=== PATIENT | male | born 1980 | race American Indian/Alaskan Native ===

== ENCOUNTER 2017-03-27 15:15 | Inpatient (IN) | payer MEDICAID ==
--- NOTE | 2017-03-27 16:48 | ED PDOC ---
HPI: Abdomen Time Seen by Provider: 03/27/17 15:27 Chief Complaint (Nursing): Abdominal Pain Chief Complaint (Provider): Abdominal Pain History Per: Patient History/Exam Limitations: no limitations Onset/Duration Of Symptoms: Days (x 2) Current Symptoms Are (Timing): Still Present Additional Complaint(s): Joshua is a 36 year old male who presents to the emergency department with lower abdominal pain since yesterday. Patient reports vomited x 1 after taking Tylenol last night. Patient reports intermittent nausea, but normal bowel movements. Denies urinary symptoms. Patient states he is currently sexually active and does anal intercourse with (both ways). PMD: Rock Ureña Past Medical History Reviewed: Historical Data, Nursing Documentation, Vital Signs Vital Signs: Last Vital Signs Temp 98.4 F 03/27/17 19:29 Pulse 76 03/27/17 19:29 Resp 16 03/27/17 19:29 BP 134/81 03/27/17 19:29 Pulse Ox 99 03/27/17 19:29 - Surgical History Other surgeries: Foot - Family History Family History: States: No Known Family Hx - Allergies Allergies/Adverse Reactions: Allergies Allergy/AdvReac Type Severity Reaction Status Date / Time No Known Allergies Allergy Verified 03/27/17 15:29 Review of Systems ROS Statement: Except As Marked, All Systems Reviewed And Found Negative Gastrointestinal: Positive for: Nausea (Intermittent), Vomiting, Abdominal Pain (Lower) Genitourinary Male: Negative for: Dysuria, Hematuria Physical Exam - Reviewed Nursing Documentation Reviewed: Yes Vital Signs Reviewed: Yes - Physical Exam Appears: Positive for: Non-toxic Head Exam: Positive for: NORMAL INSPECTION Skin: Positive for: Normal Color Eye Exam: Positive for: Normal appearance, EOMI, PERRL ENT: Positive for: Normal ENT Inspection Neck: Positive for: Normal Cardiovascular/Chest: Positive for: Regular Rate, Rhythm Respiratory: Positive for: Normal Breath Sounds. Negative for: Accessory Muscle Use, Respiratory Distress Gastrointestinal/Abdominal: Positive for: Tenderness (Right Lower Quadrant) Extremity: Positive for: Normal ROM Neurologic/Psych: Positive for: Alert - Laboratory Results Result Diagrams: 03/27/17 17:14 03/27/17 17:14 - ECG O2 Sat by Pulse Oximetry: 100 (RA) Pulse Ox Interpretation: Normal Medical Decision Making Medical Decision Making: Time: 16:21 Plan: - CT Abdominal and Pelvis IV Contrast - CMP - CBC - Urine Culture - Urinalysis Time: 18:52 CT Abdomen and Pelvis with Contrast FINDINGS: LOWER THORAX: Unremarkable. LIVER: 1.5 cm mass in the right hepatic lobe. Elective followup recommended for this probably benign lesion. GALLBLADDER AND BILE DUCTS: Unremarkable. PANCREAS: Unremarkable. No gross lesion or ductal dilatation. SPLEEN: Unremarkable. ADRENALS: Unremarkable. No mass. KIDNEYS AND URETERS: Unremarkable. No hydronephrosis. No solid mass. VASCULATURE: Unremarkable. No aortic aneurysm. BOWEL: Dilated small bowel which may represent ileus. APPENDIX: Dilated appendix, contrast-enhancing characteristics of acute appendicitis. Periappendiceal inflammatory changes noted. Appendicular at at the junction of the appendix and cecum. The appendix extends to the midline, inflammatory changes are primarily right lower quadrant and pelvis. PERITONEUM: Unremarkable. No free fluid. No free air. LYMPH NODES: Unremarkable. No enlarged lymph nodes. BLADDER: Unremarkable. REPRODUCTIVE: Unremarkable. BONES: No acute fracture. OTHER FINDINGS: None. IMPRESSION: Acute appendicitis. The appendix is dilated to a maximum diameter 14 mm. Periappendiceal inflammatory changes extend from the right lower quadrant to the midline. No loculated air, free air, drainable collection identified. Discussed with Dr. Hoffman and surgical residents. Zosyn IV ordered. Scribe Attestation: Documented by Jorge Ricardo, acting as a scribe for Rosey Hyman PA-C Provider Scribe Attestation: All medical record entries made by the Scribe were at my direction and personally dictated by me. I have reviewed the chart and agree that the record accurately reflects my personal performance of the history, physical exam, medical decision making, and the department course for this patient. I have also personally directed, reviewed, and agree with the discharge instructions and disposition. Disposition - Clinical Impression Clinical Impression: Acute appendicitis - Patient ED Disposition Is Patient to be Admitted: Yes - Disposition Disposition Time: 19:04 Condition: STABLE Forms: [facility] ([facility]) - Pt Status Changed To: Hospital Disposition Of: Inpatient - Admit Certification Admit to Inpatient:: After my assessment, the patient will require hospitalization for at least two midnights. This is because of the severity of symptoms shown, intensity of services needed, and/or the medical risk in this patient being treated as an outpatient. - POA Present On Arrival: None
[2017-03-27 17:40] LABS: BASO # 0.1 K/uL (0.0-0.2); BASO % 0.3 % (0.0-2.0); HEMOGLOBIN 14.6 g/dL (12.0-18.0); MEAN CELL VOLUME 86.4 fl (80.0-94.0); MEAN CORPUSCULAR HEMOGLOBIN 27.4 pg (27.0-31.0); MEAN CORPUSCULAR HGB CONC 31.7 g/dL (33.0-37.0); MEAN PLATELET VOLUME 8.9 fl (7.2-11.7); MONO # 1.5 K/uL (0.0-0.8); MONO % 7.8 % (0.0-10.0); NEUT # 17.1 K/uL (1.8-7.0); NEUT % 86.9 % (50.0-75.0); PLATELET COUNT 271 K/uL (130-400); RBC 5.33 Mil/uL (4.40-5.90); RED CELL DISTRIBUTION WIDTH 14.1 % (11.5-14.5); WHITE BLOOD COUNT 19.6 K/uL (4.8-10.8)
[2017-03-27 17:48] LABS: CALCIUM 9.4 mg/dL (8.4-10.2); GFR AFRICAN-AMERICAN > 60; GFR NON-AFRICAN AMERICAN > 60
[2017-03-27 17:50] LABS: ALB/GLOB RATIO 1.2 (1.0-2.1); ALBUMIN 4.7 g/dL (3.5-5.0); ALT/SGPT 27 U/L (21-72); AST/SGOT 39 U/L (17-59); BLOOD UREA NITROGEN 11 mg/dl (9-20)
[2017-03-27] MEDS ORDERED: Sodium Chloride 0.9% 50 ML IV ONE (17:53)
[2017-03-27] MEDS ORDERED: Iohexol 300 100 ML IJ ONE (17:53)
[2017-03-27 18:00] LABS: SQUAMOUS EPITHIAL 2 /hpf (0-5); URINE BILIRUBIN NEGATIVE (NEGATIVE); URINE BLOOD SMALL (NEGATIVE); URINE CLARITY CLOUDY (Clear); URINE COLOR AMBER (YELLOW); URINE GLUCOSE (UA) NEG (Normal); URINE LEUKOCYTE ESTERASE LARGE Leu/uL (Negative); URINE NITRATE NEGATIVE (NEGATIVE); URINE PROTEIN 30 mg/dL (NEGATIVE); URINE UROBILINOGEN 0.2-1.0 mg/dL (0.2-1.0)
[2017-03-27] MEDS ORDERED: Morphine 4 MG/ML VIAL IV STA ×2 (18:47→21:55)
[2017-03-27] MEDS ORDERED: Morphine 4 MG/ML VIAL ONE (18:53)
--- NOTE | 2017-03-27 18:54 | CT ---
PROCEDURE: CT Abdomen and Pelvis with contrast HISTORY: Right lower quadrant pain[place] [address] COMPARISON: None. TECHNIQUE: Contrast dose: 95 cc Omnipaque 300 Radiation dose: Total exam DLP = 1066.22 mGy-cm. This CT exam was performed using one or more of the following dose reduction techniques: Automated exposure control, adjustment of the mA and/or kV according to patient size, and/or use of iterative reconstruction technique. FINDINGS: LOWER THORAX: Unremarkable. LIVER: 1.5 cm mass in the right hepatic lobe. Elective followup recommended for this probably benign lesion. GALLBLADDER AND BILE DUCTS: Unremarkable. PANCREAS: Unremarkable. No gross lesion or ductal dilatation. SPLEEN: Unremarkable. ADRENALS: Unremarkable. No mass. KIDNEYS AND URETERS: Unremarkable. No hydronephrosis. No solid mass. VASCULATURE: Unremarkable. No aortic aneurysm. BOWEL: Dilated small bowel which may represent ileus. APPENDIX: Dilated appendix, contrast-enhancing characteristics of acute appendicitis. Periappendiceal inflammatory changes noted. Appendicular at at the junction of the appendix and cecum. The appendix extends to the midline, inflammatory changes are primarily right lower quadrant and pelvis. PERITONEUM: Unremarkable. No free fluid. No free air. LYMPH NODES: Unremarkable. No enlarged lymph nodes. BLADDER: Unremarkable. REPRODUCTIVE: Unremarkable. BONES: No acute fracture. OTHER FINDINGS: None. IMPRESSION: Acute appendicitis. The appendix is dilated to a maximum diameter 14 mm. Periappendiceal inflammatory changes extend from the right lower quadrant to the midline. No loculated air, free air, drainable collection identified. Communication of results: Study completed at 17:59 For results provided at 18:45 I discussed findings with the physician high school assistant principal Rosey Beckwith.. Results available in the electronic medical record at 18:50
[2017-03-27] MEDS ORDERED: Piperacillin/Tazobact 3.375 GM in Sodium Chloride 0.9% 100 ML IV ONE (19:33)
[2017-03-27] MEDS ORDERED: Piperacillin/Tazobact 3.375 gm Inj IVPB ONE (19:41)
--- NOTE | 2017-03-27 19:51 | CP.PCM.CON ---
History of Present Illness - History of Present Illness History of Present Illness: General Surgery Consult Note for Dr. Hoffman Reason for Consult: Acute Appendicitis 36 M with PMH of HIV presents to [facility] for complaint of abdominal pain. Patient was evaluated in the ED. Patient states that pain began about 2 days again. He reports that the pain woke him from sleep. Patient reports sudden onset. He states that he never experienced this in the past. He rates the pain as severe. He describes the pain as constant and sharp located in lower abdomen bilaterally. Patient denies associated nausea/vomiting and diarrhea. Patietn states that hetook motrin which provided relief. He reports that certain positional changes exacerbates the pain. Admits to chills, anorexia, constipation, urinary difficulty. Denies headaches, fever, chest pain, SOB, palpitations, incontinence. CT abdomen/pelvis with IV contrast showed acute appendicitis with appendix measuring 14 mm. PMD: Dr. Rock Ureña PMH: HIV (viral load <20 as of 11/2016), Childhood Asthma Meds: Complera Allergy: NKDA PSH: I&D of left foot FH: HTN, DM Social: smokes 4-5 cigarettes per day for 20+ years, smokes marijuana daily, social drinker Review of Systems - Review of Systems All systems: reviewed and no additional remarkable complaints except (as per hPI ) Past Patient History - Past Social History Smoking Status: Never Smoked - PSYCHIATRIC Hx Substance Use: No Meds Allergies/Adverse Reactions: Allergies Allergy/AdvReac Type Severity Reaction Status Date / Time No Known Allergies Allergy Verified 03/27/17 15:29 - Medications Medications: Current Medications Piperacillin Sod/Tazobactam (Sod 3.375 gm/ Sodium Chloride) 100 mls @ 100 mls/ hr IV ONCE ONE PRN Reason: Protocol Stop: 03/27/17 20:32 Physical Exam - Constitutional Appears: No Acute Distress - Head Exam Head Exam: ATRAUMATIC, NORMOCEPHALIC - Eye Exam Eye Exam: EOMI, Normal appearance Pupil Exam: PERRL - ENT Exam ENT Exam: Mucous Membranes Dry - Respiratory Exam Respiratory Exam: NORMAL BREATHING PATTERN - Cardiovascular Exam Cardiovascular Exam: REGULAR RHYTHM - GI/Abdominal Exam GI & Abdominal Exam: Normal Bowel Sounds, Soft, Tenderness (lower abdomen bilaterally). absent: Distended, Firm, Guarding, Hernia, Rebound, Rigid - Extremities Exam Extremities exam: Positive for: normal capillary refill, pedal pulses present. Negative for: calf tenderness - Back Exam Back exam: absent: CVA tenderness (L), CVA tenderness (R) - Neurological Exam Neurological exam: Alert, CN II-XII Intact, Oriented x3 - Psychiatric Exam Psychiatric exam: Normal Affect, Normal Mood - Skin Skin Exam: Dry, Intact, Normal Color, Warm Results - Vital Signs Recent Vital Signs: Last Vital Signs Temp 98.4 F 03/27/17 19:29 Pulse 76 03/27/17 19:29 Resp 16 03/27/17 19:29 BP 134/81 03/27/17 19:29 Pulse Ox 100 03/27/17 19:34 - Labs Result Diagrams: 03/27/17 17:14 03/27/17 17:14 Labs: Laboratory Results - last 24 hr 03/27/17 03/27/17 03/27/17 17:14 17:14 17:14 WBC 19.6 H RBC 5.33 Hgb 14.6 Hct 46.0 MCV 86.4 MCH 27.4 MCHC 31.7 L RDW 14.1 Plt Count 271 MPV 8.9 Neut % (Auto) 86.9 H Lymph % (Auto) 5.0 L [place] % (Auto) 7.8 Eos % (Auto) 0.0 Baso % (Auto) 0.3 Neut # 17.1 H Lymph # 1.0 [place] # 1.5 H Eos # 0.0 Baso # 0.1 Sodium 139 Potassium 4.8 Chloride 99 Carbon Dioxide 27 Anion Gap 18 BUN 11 Creatinine 0.7 L Est GFR ( Amer) > 60 Est GFR (Non-Af Amer) > 60 Random Glucose 105 Calcium 9.4 Total Bilirubin 1.3 AST 39 ALT 27 Alkaline Phosphatase 82 Total Protein 8.7 H Albumin 4.7 Globulin 4.0 H Albumin/Globulin Ratio 1.2 Urine Color Raisa Urine Clarity Cloudy Urine pH 6.0 Ur Specific [place] 1.026 Urine Protein 30 Urine Glucose (UA) Neg Urine Ketones Negative Urine Blood Small Urine Nitrate Negative Urine Bilirubin Negative Urine Urobilinogen 0.2-1.0 Ur Leukocyte Esterase Large Urine RBC (Auto) 5 H Urine Microscopic WBC 8 H Ur Squamous Epith Cells 2 Assessment & Plan - Assessment and Plan (Free Text) Plan: 36 M with acute appendicitis -NPO -IV antibiotics -IV fluids -Analgesics/Antiemetics PRN -Antipyretics PRN -Pepcid/SCDs -Plan for laparoscopic appendectomy in OR tomorrow (03/28) -Discussed with Dr. Dalton Chu PGY1
[2017-03-27 19:58] LABS: BANDS 4 % (0-2); LYMPHOCYTE 6 % (20-50); MONOCYTE 7 % (0-10); NEUTROPHIL 83 % (42-75); PLATELET ESTIMATE NORMAL (NORMAL); TOTAL CELLS COUNTED 100
[2017-03-27 19:59] LABS: HYPOCHROMIC SLIGHT
--- NOTE | 2017-03-27 20:13 | CP.PCM.HP ---
History of Present Illness - History of Present Illness History of Present Illness: CC: abdominal pain HPI: 36 y/o man w/ pmh of HIV (not AIDS, controlled w/ Complera) presents to the ED w/ abdominal pain. Patient reports pain started 2 days ago in the umbilical area but migrated down to lower abdomen bilaterally more so on the right than the left. The patient reports the pain is cramping/stabbing in nature with radiation to the back. Patient reports no alleviating factors but reports aggravation w/ movement. Patient took tylenol w/ no relief but had mild relief w/ motrin. Patient reports chills, no appetite, constipation, difficulty urinating, and x1 episode of non-bloody/non-bilious vomit. Patient had last meal on 03/25/2017 and last bowel movement 03/25/2017. Patient denies headaches, chest pain, SOB, fever. ED course: Vitals: 98.4 F, 76 bpm, 134/81 mm Hg, resp 16, O2 100% RA CBC: 19/6>14.6/46.0<271 CMP: 139/4.8, 99/27, 11/0.7, glucose 105, AST 39, aLT 27, alk phos 82 urine culture: pending UA: cloudy, small blood, large leukocyte esterase, neg for glucose, ketones, nitrates, or bilirubin CT abdomen and pelvis w/ IV contrast: Acute appendicitis. The appendix is dilated to a maximum diameter 14 mm. Periappendiceal inflammatory changes extend from the right lower quadrant to the midline. No loculated air, free air , drainable collection identified. PMD: Dr Ureña, last seen 11/2016 PMH: HIV (not AIDS, undetectable, viral load <20 as of 11/2016) meds: Complera (good adherence) PSH: left foot cellulitis 2003 FamHx: HTN and DM2 in mother and father side SOC: smokes 5 cigarettes/day, smokes marijuana 2-3x/day, social drinking, no other illegal substances ROS: 12 points assessed and found negative unless otherwise reported in HPI Present on Admission - Present on Admission Any Indicators Present on Admission: No History of DVT/PE: No History of Uncontrolled Diabetes: No Urinary Catheter: No Decubitus Ulcer Present: No Review of Systems - Review of Systems All systems: reviewed and no additional remarkable complaints except - Constitutional Constitutional: Chills, Weakness. absent: Fever, Headache - Cardiovascular Cardiovascular: absent: Chest Pain, Dyspnea, Leg Edema, Leg Ulcers, Lightheadedness, Pedal Edema, Rapid Heart Rate - Respiratory Respiratory: absent: Dyspnea, Dyspnea on Exertion, Wheezing - Gastrointestinal Gastrointestinal: As Per HPI, Abdominal Pain, Constipation, Cramping. absent: Diarrhea, Hematemesis, Hematochezia, Melena - Genitourinary Genitourinary: Difficulty Urinating - Musculoskeletal Musculoskeletal: Myalgias - Integumentary Integumentary: Dry Skin. absent: Rash - Neurological Neurological: absent: Headaches Past Patient History - Tetanus Immunizations Tetanus Immunization: Up to Date - Past Medical History & Family History Pertinent Family History: HTN and DM2 on motehr and father side - Past Social History Smoking Status: Current Some Days Smoker Chewing Tobacco Use: No Cigar Use: No Alcohol: Social Drugs: Cannabis - PSYCHIATRIC Hx Substance Use: No Meds Allergies/Adverse Reactions: Allergies Allergy/AdvReac Type Severity Reaction Status Date / Time No Known Allergies Allergy Verified 03/27/17 15:29 Physical Exam - Constitutional Appears: Non-toxic, No Acute Distress - Head Exam Head Exam: ATRAUMATIC, NORMAL INSPECTION, NORMOCEPHALIC - Eye Exam Eye Exam: Normal appearance - Neck Exam Neck exam: Positive for: Full Rom, Normal Inspection - Respiratory Exam Respiratory Exam: Clear to Auscultation Bilateral, NORMAL BREATHING PATTERN. absent: Decreased Breath Sounds, Rales, Rhonchi, Wheezes, Respiratory Distress - Cardiovascular Exam Cardiovascular Exam: REGULAR RHYTHM, RRR. absent: Gallop, Rubs - GI/Abdominal Exam GI & Abdominal Exam: Normal Bowel Sounds, Soft, Tenderness. absent: Mass, Rebound, Rigid Additional comments: negative Rovsing's sign, negative Oleary's - Extremities Exam Extremities exam: Positive for: normal inspection. Negative for: calf tenderness, pedal edema, tenderness - Back Exam Back exam: absent: CVA tenderness (L), CVA tenderness (R) - Neurological Exam Neurological exam: Alert, Oriented x3 - Psychiatric Exam Psychiatric exam: Normal Affect, Normal Mood - Skin Skin Exam: Dry, Intact, Normal Color Results - Vital Signs Recent Vital Signs: Last Vital Signs Temp 98.4 F 03/27/17 19:29 Pulse 76 03/27/17 19:29 Resp 16 03/27/17 19:29 BP 134/81 03/27/17 19:29 Pulse Ox 100 03/27/17 19:34 - Labs Result Diagrams: 03/27/17 17:14 03/27/17 17:14 Labs: Laboratory Results - last 24 hr 03/27/17 03/27/17 03/27/17 17:14 17:14 17:14 WBC 19.6 H RBC 5.33 Hgb 14.6 Hct 46.0 MCV 86.4 MCH 27.4 MCHC 31.7 L RDW 14.1 Plt Count 271 MPV 8.9 Neut % (Auto) 86.9 H Lymph % (Auto) 5.0 L [place] % (Auto) 7.8 Eos % (Auto) 0.0 Baso % (Auto) 0.3 Neut # 17.1 H Lymph # 1.0 [place] # 1.5 H Eos # 0.0 Baso # 0.1 Sodium 139 Potassium 4.8 Chloride 99 Carbon Dioxide 27 Anion Gap 18 BUN 11 Creatinine 0.7 L Est GFR ( Amer) > 60 Est GFR (Non-Af Amer) > 60 Random Glucose 105 Calcium 9.4 Total Bilirubin 1.3 AST 39 ALT 27 Alkaline Phosphatase 82 Total Protein 8.7 H Albumin 4.7 Globulin 4.0 H Albumin/Globulin Ratio 1.2 Urine Color Raisa Urine Clarity Cloudy Urine pH 6.0 Ur Specific [place] 1.026 Urine Protein 30 Urine Glucose (UA) Neg Urine Ketones Negative Urine Blood Small Urine Nitrate Negative Urine Bilirubin Negative Urine Urobilinogen 0.2-1.0 Ur Leukocyte Esterase Large Urine RBC (Auto) 5 H Urine Microscopic WBC 8 H Ur Squamous Epith Cells 2 Assessment & Plan - Assessment and Plan (Free Text) Assessment: 36 y/o man w/ pmh of HIV (not AIDS, controlled w/ Complera) presents to the ED w / abdominal pain. Due to appendicitis. Plan: Appendicitis - lower abdominal pain - elevated WBC 19.6 - CT abdomen and pelvis w/ IV contrast: Acute appendicitis. The appendix is dilated to a maximum diameter 14 mm. Periappendiceal inflammatory changes extend from the right lower quadrant to the midline. No loculated air, free air , drainable collection identified - Surgery consulted, Dr. Hoffman, recommendations appreciated - laparoscopic appendectomy tomorrow - NPO - Zosyn 3.375 gm IV Q6h - IVF NS @ 150 mL/hr - tylenol 650 mg PO Q6h prn - dilaudid 0.5 mg IV Q3h prn - zofran 4 mg IV Q6 prn - admit to MedSurg Possible UTI - UA large lueks but negative nitrates - patient reports difficulty urinating and producing little amount of darker colored urine - denies burning - denies discharge - urine culture pending Prophylactic measures - SCDs - Pepcid 20 mg IV Q12h
[2017-03-27 21:59] LABS: VENOUS BLOOD GAS BASE EXCESS -9.5 mmol/L (0.0-2.0); VENOUS BLOOD GAS PCO2 59 mmHg (40-60); VENOUS BLOOD GAS PO2 102 mm/Hg (30-55); VENOUS BLOOD PH 7.14 (7.32-7.43)
[2017-03-27] MEDS: Sodium Chloride 0.9% 1,000 ML IV SCH (22:39)
[2017-03-28] MEDS: Piperacillin/Tazobact 3.375 GM in Sodium Chloride 0.9% 100 ML IVPB SCH ×4 (00:32→18:25)
[2017-03-28] MEDS: Sodium Chloride 0.9% 1,000 ML IV SCH ×2 (05:39→21:23)
[2017-03-28 08:34] LABS: INR 1.4 (0.9-1.2); PARTIAL THROMBOPLASTIN TIME 33.9 Seconds (25.6-37.1)
--- NOTE | 2017-03-28 09:45 | CP.PCM.PN ---
Subjective - Date & Time of Evaluation Date of Evaluation: 03/28/17 Time of Evaluation: 09:43 - Subjective Subjective: No acute overnight events. Pt states that his pain is better with his pain medications. Endorses chills overnight. Denies n/v/d/c and remains afebrile. Objective - Vital Signs/Intake and Output Vital Signs (last 24 hours): Temp Pulse Resp BP Pulse Ox 99.7 F H 74 19 142/79 97 03/28/17 07:55 03/28/17 07:55 03/28/17 07:55 03/28/17 07:55 03/28/17 07:55 - Medications Medications: Current Medications Acetaminophen (Tylenol 325mg Tab) 650 mg PO Q6 PRN PRN Reason: Fever >100.4 F Famotidine (Pepcid) 20 mg IVP Q12 [facility] Last Admin: 03/28/17 08:37 Dose: 20 mg Hydromorphone HCl (Dilaudid) 0.5 mg IVP Q3H PRN PRN Reason: Pain, severe (8-10) Last Admin: 03/28/17 08:02 Dose: 0.5 mg Sodium Chloride (Sodium Chloride 0.9%) 1,000 mls @ 150 mls/hr IV .Q6H40M CORINNE Stop: 03/28/17 21:30 Last Admin: 03/28/17 05:39 Dose: 150 mls/hr Piperacillin Sod/Tazobactam (Sod 3.375 gm/ Sodium Chloride) 100 mls @ 100 mls/ hr IVPB Q6H CORINNE PRN Reason: Protocol Last Admin: 03/28/17 08:10 Dose: 100 mls/hr Ondansetron HCl (Zofran Inj) 4 mg IVP Q6 PRN PRN Reason: Nausea/Vomiting - Labs Labs: 03/27/17 17:14 03/27/17 17:14 PT 16.0 Seconds (9.8-13.1) H 03/28/17 08:10 INR 1.4 (0.9-1.2) H 03/28/17 08:10 APTT 33.9 Seconds (25.6-37.1) 03/28/17 08:10 - Constitutional Appears: Other (in mild distress ) - Head Exam Head Exam: ATRAUMATIC, NORMOCEPHALIC - Eye Exam Eye Exam: EOMI, Normal appearance - ENT Exam ENT Exam: Mucous Membranes Moist - Neck Exam Neck Exam: Full ROM - Respiratory Exam Respiratory Exam: Clear to Ausculation Bilateral, NORMAL BREATHING PATTERN. absent: Rales, Wheezes - Cardiovascular Exam Cardiovascular Exam: REGULAR RHYTHM, +S1, +S2 - GI/Abdominal Exam GI & Abdominal Exam: Distended (mildly distended ), Soft, Tenderness ( tenderness to palpation in the RLQ around McBurny's point and in the LLQ. R>L), Hyperactive Bowel Sounds. absent: Guarding, Rebound - Extremities Exam Extremities Exam: Full ROM, Normal Capillary Refill. absent: Pedal Edema, Tenderness - Back Exam Back Exam: NORMAL INSPECTION - Neurological Exam Neurological Exam: Alert, Awake, Oriented x3 - Psychiatric Exam Psychiatric exam: Normal Affect, Normal Mood - Skin Skin Exam: Dry, Intact, Normal Color, Warm Assessment and Plan - Assessment and Plan (Free Text) Assessment: Assessment/Plan: 36 YO Male with PMH of HIV (not AIDS, controlled w/ Complera) is admitted for acute appendicitis. 1. Acute Appendicitis -RLQ >LLQ abdominal pain, chills, and anorexia -elevated WBC 19.6, afebrile -CT abdomen and pelvis w/ IV contrast: Acute appendicitis. The appendix is dilated to a maximum diameter 14 mm. Periappendiceal inflammatory changes extend from the right lower quadrant to the midline. No loculated air, free air , drainable collection identified -Surgery consulted, Dr. Hoffman, recommendations appreciated -NPO -Zosyn 3.375 gm IV Q6h -IVF NS @ 150 mL/hr -tylenol 650 mg PO Q6h prn -dilaudid 0.5 and 1 mg for mild and severe pain -zofran 4 mg IV Q6 prn -laparoscopic appendectomy today 2) UTI, asymptomatic -UA large lukes but negative nitrates -denies dysuria, urinary frequency, discharge -urine culture pending 3) HIV -stable -last viral load was <20 -continue complera 4) Prophylactic measures -SCDs -Pepcid 20 mg IV Q12h -Lovonox post procedure
[2017-03-28] MEDS ORDERED: Lidocaine 4% (Laryng-O-Jet) Kit MM ONE (10:08)
[2017-03-28] MEDS ORDERED: Propofol 10 mg/ml Inj (20 ML) ONE (10:08)
[2017-03-28] MEDS ORDERED: Rocuronium 10 mg/ml (5 ml) ONE (10:08)
[2017-03-28] MEDS ORDERED: Succinylcholine 200 mg/10 ml Inj IV ONE (10:08)
--- NOTE | 2017-03-28 10:17 | RAD ---
PROCEDURE: CHEST RADIOGRAPH, 1 VIEW HISTORY: pre op eval COMPARISON: None available. FINDINGS: LUNGS: The lungs are well inflated and clear. PLEURA: No pneumothorax or pleural fluid seen. CARDIOVASCULAR: Normal. OSSEOUS STRUCTURES: No significant abnormalities. VISUALIZED UPPER ABDOMEN: Normal. OTHER FINDINGS: None. IMPRESSION: No active pulmonary disease.
--- NOTE | 2017-03-28 10:43 | CARD ---
APPROVED REPORT EKG Measurement Heart [id number] SD [id number] <Conclusion> Normal sinus rhythm Normal ECG
[2017-03-28] MEDS ORDERED: Lactated Ringer's 1,000 ML IV ONE ×2 (10:45→11:00)
[2017-03-28] MEDS ORDERED: Midazolam 2 MG/2 ML VIAL ONE (10:49)
[2017-03-28] MEDS ORDERED: Dexamethasone 4 mg/1 ml ONE (11:03)
[2017-03-28] MEDS ORDERED: Oxycodone/Acetaminophen 5/325 mg Tab PO PRN (11:41)
--- NOTE | 2017-03-28 11:44 | PCM.SURG1 ---
Surgeon's Initial Post Op Note - Surgeon's Notes Surgeon: Will Hoffman MD Floral Assistant: Vincenzo Garcia PGY-3; Barbie Monahan PGY-1 Type of Anesthesia: General Endo Pre-Operative Diagnosis: Acute appendicitis Operative Findings: See op report Post-Operative Diagnosis: Acute appendicitis with rupture Operation Performed: Laparoscopic appendectomy Specimen/Specimens Removed: Appendix Estimated Blood Loss: EBL {In ML}: 5 Blood Products Given: N/A Drains Used: No Drains Post-Op Condition: Good Date of Surgery/Procedure: 03/28/17 Time of Surgery/Procedure: 11:44
[2017-03-28] MEDS ORDERED: Lactated Ringer's 1,000 ML IV SCH (11:45)
[2017-03-28] MEDS: HYDROmorphone 0.5 mg/0.5 ml ISec IVP PRN ×3 (11:55→12:40)
[2017-03-28] MEDS ORDERED: Patient's Own Med (Emtricita/Rilpivir/Tenofovir 1 TAB) PO SCH (14:15)
[2017-03-28] MEDS: Oxycodone/Acetaminophen 5/325 mg Tab PO PRN (18:23)
[2017-03-28 23:40] VITALS: RESP 20
[2017-03-29] MEDS: Piperacillin/Tazobact 3.375 GM in Sodium Chloride 0.9% 100 ML IVPB SCH ×3 (00:22→06:10)
[2017-03-29] MEDS: Oxycodone/Acetaminophen 5/325 mg Tab PO PRN (04:07)
[2017-03-29 05:51] LABS: BASO % 0.1 % (0.0-2.0); HEMOGLOBIN 11.8 g/dL (12.0-18.0); LYMPH # 1.1 K/uL (1.0-4.3); LYMPH % 6.9 % (20.0-40.0); MEAN CELL VOLUME 85.9 fl (80.0-94.0); MEAN CORPUSCULAR HEMOGLOBIN 27.4 pg (27.0-31.0); MEAN CORPUSCULAR HGB CONC 31.9 g/dL (33.0-37.0); MEAN PLATELET VOLUME 8.6 fl (7.2-11.7); MONO # 1.4 K/uL (0.0-0.8); MONO % 8.8 % (0.0-10.0); NEUT # 13.7 K/uL (1.8-7.0); NEUT % 84.2 % (50.0-75.0); RBC 4.29 Mil/uL (4.40-5.90); RED CELL DISTRIBUTION WIDTH 13.9 % (11.5-14.5); WHITE BLOOD COUNT 16.3 K/uL (4.8-10.8)
--- NOTE | 2017-03-29 07:23 | CP.PCM.DIS ---
Provider - Provider Date of Admission: 03/27/17 20:43 Attending physician: Regina Yo MD Time Spent in preparation of Discharge (in minutes): 20 Hospital Course - Lab Results Lab Results: Micro Results 03/27/17 21:35 Blood-Venous Blood Culture - Preliminary NO GROWTH AFTER 24 HOURS Most Recent Lab Values WBC 19.6 K/uL (4.8-10.8) H 03/27/17 17:14 RBC 5.33 Mil/uL (4.40-5.90) 03/27/17 17:14 Hgb 14.6 g/dL (12.0-18.0) 03/27/17 17:14 Hct 46.0 % (35.0-51.0) 03/27/17 17:14 MCV 86.4 fl (80.0-94.0) 03/27/17 17:14 MCH 27.4 pg (27.0-31.0) 03/27/17 17:14 MCHC 31.7 g/dL (33.0-37.0) L 03/27/17 17:14 RDW 14.1 % (11.5-14.5) 03/27/17 17:14 Plt Count 271 K/uL (130-400) 03/27/17 17:14 MPV 8.9 fl (7.2-11.7) 03/27/17 17:14 Neut % (Auto) 86.9 % (50.0-75.0) H 03/27/17 17:14 Lymph % (Auto) 5.0 % (20.0-40.0) L 03/27/17 17:14 [place] % (Auto) 7.8 % (0.0-10.0) 03/27/17 17:14 Eos % (Auto) 0.0 % (0.0-4.0) 03/27/17 17:14 Baso % (Auto) 0.3 % (0.0-2.0) 03/27/17 17:14 Neut # 17.1 K/uL (1.8-7.0) H 03/27/17 17:14 Lymph # 1.0 K/uL (1.0-4.3) 03/27/17 17:14 Lake # 1.5 K/uL (0.0-0.8) H 03/27/17 17:14 Eos # 0.0 K/uL (0.0-0.7) 03/27/17 17:14 Baso # 0.1 K/uL (0.0-0.2) 03/27/17 17:14 Neutrophils % (Manual) 83 % (42-75) H 03/27/17 17:14 Band Neutrophils % 4 % (0-2) H 03/27/17 17:14 Lymphocytes % (Manual) 6 % (20-50) L 03/27/17 17:14 Monocytes % (Manual) 7 % (0-10) 03/27/17 17:14 Platelet Estimate Normal (NORMAL) 03/27/17 17:14 Hypochromasia (manual) Slight 03/27/17 17:14 PT 16.0 Seconds (9.8-13.1) H 03/28/17 08:10 INR 1.4 (0.9-1.2) H 03/28/17 08:10 APTT 33.9 Seconds (25.6-37.1) 03/28/17 08:10 pO2 102 mm/Hg (30-55) H 03/27/17 21:50 VBG pH 7.14 (7.32-7.43) L* 03/27/17 21:50 VBG pCO2 59 mmHg (40-60) 03/27/17 21:50 VBG HCO3 17.5 mmol/L 03/27/17 21:50 VBG Total CO2 21.9 mmol/L (22-28) L 03/27/17 21:50 VBG O2 Sat (Calc) 99.0 % (40-65) H 03/27/17 21:50 VBG Base Excess -9.5 mmol/L (0.0-2.0) L 03/27/17 21:50 Sodium 118.0 mmol/L (132-148) L* 03/27/17 21:50 Chloride 100.0 mmol/L (98-107) 03/27/17 21:50 Glucose 107 mg/dL (75-110) 03/27/17 21:50 Lactate 1.1 mmol/L (0.7-2.1) 03/27/17 21:50 FiO2 21.0 % 03/27/17 21:50 Crit Value Called To Ranjana guerrero 03/27/17 21:50 Crit Value Called By 23 03/27/17 21:50 Crit Value Read Back Y 03/27/17 21:50 Blood Gas Notified Time 215403/27/17 21:50 Sodium 139 mmol/l (132-148) 03/27/17 17:14 Potassium 4.8 MMOL/L (3.6-5.0) 03/27/17 17:14 Chloride 99 mmol/L (98-107) 03/27/17 17:14 Carbon Dioxide 27 mmol/L (22-30) 03/27/17 17:14 Anion Gap 18 (10-20) 03/27/17 17:14 BUN 11 mg/dl (9-20) 03/27/17 17:14 Creatinine 0.7 mg/dl (0.8-1.5) L 03/27/17 17:14 Est GFR ( Amer) > 60 03/27/17 17:14 Est GFR (Non-Af Amer) > 60 03/27/17 17:14 Random Glucose 105 mg/dL (75-110) 03/27/17 17:14 Calcium 9.4 mg/dL (8.4-10.2) 03/27/17 17:14 Total Bilirubin 1.3 mg/dl (0.2-1.3) 03/27/17 17:14 AST 39 U/L (17-59) 03/27/17 17:14 ALT 27 U/L (21-72) 03/27/17 17:14 Alkaline Phosphatase 82 U/L (38-126) 03/27/17 17:14 Total Protein 8.7 G/DL (6.3-8.2) H 03/27/17 17:14 Albumin 4.7 g/dL (3.5-5.0) 03/27/17 17:14 Globulin 4.0 gm/dL (2.2-3.9) H 03/27/17 17:14 Albumin/Globulin Ratio 1.2 (1.0-2.1) 03/27/17 17:14 Urine Color Raisa (YELLOW) 03/27/17 17:14 Urine Clarity Cloudy (Clear) 03/27/17 17:14 Urine pH 6.0 (5.0-8.0) 03/27/17 17:14 Ur Specific [place] 1.026 (1.003-1.030) 03/27/17 17:14 Urine Protein 30 mg/dL (NEGATIVE) 03/27/17 17:14 Urine Glucose (UA) Neg mg/dL (Normal) 03/27/17 17:14 Urine Ketones Negative mg/dL (NEGATIVE) 03/27/17 17:14 Urine Blood Small (NEGATIVE) 03/27/17 17:14 Urine Nitrate Negative (NEGATIVE) 03/27/17 17:14 Urine Bilirubin Negative (NEGATIVE) 03/27/17 17:14 Urine Urobilinogen 0.2-1.0 mg/dL (0.2-1.0) 03/27/17 17:14 Ur Leukocyte Esterase Large Erik/uL (Negative) 03/27/17 17:14 Urine RBC (Auto) 5 /hpf (0-3) H 03/27/17 17:14 Urine Microscopic WBC 8 /hpf (0-5) H 03/27/17 17:14 Ur Squamous Epith Cells 2 /hpf (0-5) 03/27/17 17:14 - Hospital Course Hospital Course: Pt is a 36 YO Male with PMH of HIV (on Complera) was admitted to [facility] for acute appendicitis. Pt is POD1, s/p appendectomy, tolerated procedure well. Pt is hemodynamically stable, afebrile, ambulating and tolerating PO diet. UTI ruled out, UA on admission was sig for +leukocyte esterase, pt asymptomatic and urine culture is negative. CT showed 1.5cm mass in right hepatic lobe, probably benign follow up as out patient. Follow up with Dr. Juan in 1 week, follow up with Dr. Hoffman (surgery clinic) in 1-2 weeks, continue complera, d/c home with Percocet 5/325mg, Augmentin 875/125mg for 5 days and colace 100mg. Discharge Exam - Head Exam Head Exam: ATRAUMATIC, NORMOCEPHALIC - Eye Exam Eye Exam: EOMI, Normal appearance - Neck Exam Neck exam: Full Rom - Respiratory Exam Respiratory Exam: Clear to PA & Lateral, NORMAL BREATHING PATTERN. absent: Rales, Rhonchi - Cardiovascular Exam Cardiovascular Exam: REGULAR RHYTHM, +S1, +S2 - GI/Abdominal Exam GI & Abdominal Exam: Distended (mild distention ), Normal Bowel Sounds, Soft, Tenderness (tenderness to palaption of the RLQ, and around incision diet). absent: Guarding, Rebound Additional comments: 3 small lapascopic scars noted, two in the LLQ and 1 suprapubic. Covered with steri-strips, dry and intact. - Extremities Exam Extremities exam: full ROM, normal capillary refill, normal inspection, pedal pulses present - Neurological Exam Neurological exam: Alert, Normal Gait, Oriented x3 - Psychiatric Exam Psychiatric exam: Normal Affect, Normal Mood - Skin Skin Exam: Dry, Intact, Normal Color, Warm Discharge Plan - Discharge Medications Prescriptions: Amoxicillin/Clavulanate [Augmentin 875 MG-125 MG] 1 tab PO BID 5 Days #10 tab Docusate [Colace] 100 mg PO DAILY #10 cap oxyCODONE/Acetaminophen [Percocet 5/325 mg Tab] 1 tab PO Q4 PRN #10 tab PRN Reason: Pain, Moderate (4-7) - Follow Up Plan Condition: STABLE Disposition: HOME/ ROUTINE Patient education suggested?: Yes Instructions: Appendicitis (DC), Laparoscopic Appendectomy (DC) Additional Instructions: Follow up with Dr. Juan within the next week Follow up with Dr. Hoffman within the next 1-2 weeks. Your surgical sites have a special tape on them, do not pull them off. Ok to take a shower, gently wash the tape with soap and water. The tape will fall off overtime. Ok to resume regular diet. Please take all meds as directed. Referrals: Will Hoffman MD [Staff Provider] -
--- NOTE | 2017-03-29 08:40 | CP.PCM.PN ---
Subjective - Date & Time of Evaluation Date of Evaluation: 03/29/17 Time of Evaluation: 07:00 - Subjective Subjective: General surgery progress note for Barbie Duke, PGY-1 Pt S & E at bedside. Pt reports pain well controlled. Had some chills overnight, flatus. No BM. Denies N & V- tolerating CLD. Denies Fevers. Objective - Vital Signs/Intake and Output Vital Signs (last 24 hours): Temp Pulse Resp BP Pulse Ox 98.7 F 59 L 20 144/83 96 03/29/17 04:05 03/29/17 04:05 03/29/17 04:05 03/29/17 04:05 03/29/17 04:05 - Medications Medications: Current Medications Acetaminophen (Tylenol 325mg Tab) 650 mg PO Q6 PRN PRN Reason: Fever >100.4 F Famotidine (Pepcid) 20 mg IVP Q12 CORINNE Last Admin: 03/29/17 08:32 Dose: 20 mg Home Med (Emtricita/Rilpivir/Tenofovir) 1 tab PO DAILY [facility] Piperacillin Sod/Tazobactam (Sod 3.375 gm/ Sodium Chloride) 100 mls @ 100 mls/ hr IVPB Q6H CORINNE PRN Reason: Protocol Last Admin: 03/29/17 06:10 Dose: 100 mls/hr Ondansetron HCl (Zofran Inj) 4 mg IVP Q6 PRN PRN Reason: Nausea/Vomiting Oxycodone/Acetaminophen (Percocet 5/325 Mg Tab) 1 tab PO Q4 PRN PRN Reason: Pain, moderate (4-7) Stop: 03/31/17 11:42 Last Admin: 03/29/17 04:07 Dose: 1 tab Oxycodone/Acetaminophen (Percocet 5/325 Mg Tab) 2 tab PO Q4 PRN PRN Reason: Pain, severe (8-10) Stop: 03/31/17 11:42 - Labs Labs: 03/29/17 05:15 03/27/17 17:14 PT 16.0 Seconds (9.8-13.1) H 03/28/17 08:10 INR 1.4 (0.9-1.2) H 03/28/17 08:10 APTT 33.9 Seconds (25.6-37.1) 03/28/17 08:10 - Constitutional Appears: Non-toxic, No Acute Distress - Head Exam Head Exam: ATRAUMATIC, NORMAL INSPECTION, NORMOCEPHALIC - Eye Exam Eye Exam: EOMI, Normal appearance - ENT Exam ENT Exam: Mucous Membranes Moist, Normal Exam - Neck Exam Neck Exam: Full ROM, Normal Inspection - Respiratory Exam Respiratory Exam: NORMAL BREATHING PATTERN - Cardiovascular Exam Cardiovascular Exam: REGULAR RHYTHM, +S1, +S2 - GI/Abdominal Exam GI & Abdominal Exam: Soft, Tenderness (over surgical sites). absent: Distended (obese), Firm, Guarding Additional comments: surgical sites with steri-strips in place - Extremities Exam Extremities Exam: Normal Inspection - Neurological Exam Neurological Exam: Alert, Awake, CN II-XII Intact, Oriented x3 - Psychiatric Exam Psychiatric exam: Normal Affect - Skin Skin Exam: Dry, Intact, Normal Color, Warm Assessment and Plan - Assessment and Plan (Free Text) Assessment: 36M POD#1 s/p laparoscopic appendectomy Plan: Afebrile since surgery Leukocytosis 16.3 from 19.6 Likely benefit from one more day of IV Abx Reg diet PO pain meds OOBTC Ambulate Encourage IS use FU AM labs Will need PO ABx upon discharge Will DANIA attending Taniya, PGY-1
[2017-03-29 08:43] VITALS: BP 143/73; PULSE 81; TEMP 98.4; O2SAT 97
--- NOTE | 2017-03-30 00:17 | OP ---
PROCEDURE DATE: 03/28/2017 SURGEON: Will Hoffman MD. ASSISTANTS: Dr. Garcia and Dr. Monahan. ANESTHESIA: General. PREOPERATIVE DIAGNOSIS: Acute appendicitis. POSTOPERATIVE DIAGNOSIS: Acute appendicitis. PROCEDURE: Laparoscopic appendectomy. DESCRIPTION OF OPERATION: With the patient in the supine position, under adequate general anesthesia, the abdomen was prepped and draped in the usual sterile manner. Veress needle puncture was performed at the umbilicus with insufflation to 15 cm water pressure of CO2 and a 5 mm laparoscopic trocar was inserted via an infraumbilical incision. Under direct vision, additional 5 and 12 mm trocars were inserted in the left lower quadrant. The cecum was identified and with gentle retraction, the appendix was identified adherent to the pelvic sidewall and extending towards the pelvis. The appendix was dilated with clitoral appearance and there was significant inflammatory reaction around the appendix. As the appendix was freed from the peritoneal attachments, there was a small amount of leakage of purulent fluid and the fluid was suctioned prior to further manipulating the appendix. The appendix was grasped and elevated. The mesoappendix was dissected and divided with an Endo-ROSALINDA stapler. The appendix itself was then divided below a large appendicolith. The appendix was placed in a specimen retrieval bag and removed via the 12 mm port site. The pelvis and right gutter were irrigated and suctioned and the terminal ileum and adjacent bowel loops were examined and to be sure that there were no inflammatory areas of attachment that could cause obstruction. The pneumoperitoneum was released and the trocars were removed. The 12 mm port site was closed with [id number] fascial suture of 0 Vicryl. All incisions were closed with 4-0 Monocryl subcuticular sutures and Steri-Strips. Dry sterile dressings were applied. The patient tolerated the procedure well and transferred to recovery room in stable condition. Estimated blood loss for the procedure was 10 mL. Will Hoffman MD
[2017-03-30 14:17] LABS: % CD4 (T HELPER CELL) 30 Percent (30-61); % CD8 (SUPPRESSOR T CELL) 28 Percent (12-42); ABSOLUTE CD4 CELLS 418 Cells/mcL (490-1740); ABSOLUTE CD8 CELLS 395 Cells/mcL (180-1170); ABSOLUTE LYMPHOCYTES 1407 Cells/mcL (850-3900); HELPER/SUPPRESSOR RATIO 1.06 Ratio (0.86-5.00)
== END 2017-03-29 13:48 | disposition home or self-care (01) | DRG 883 ==
LOC: H.ER 15:15 → H.ERHOLD 20:43 → H.MEDSURG1 22:17
PROVIDERS: ADMIT Family Medicine Geriatric Medicine; ATTEND Family Medicine Geriatric Medicine
PROC: 0DTJ4ZZ Resection of Appendix, Percutaneous Endoscopic Approach (ICD-10-PCS; principal; 2017-03-28 14:30)
DX: K35.80 Unspecified acute appendicitis (principal); E11.9 Type 2 diabetes mellitus without complications; Z21 Asymptomatic human immunodeficiency virus [HIV] infection status; F12.90 Cannabis use, unspecified, uncomplicated; F17.210 Nicotine dependence, cigarettes, uncomplicated; I10 Essential (primary) hypertension; K59.00 Constipation, unspecified; Z83.3 Family history of diabetes mellitus